=== PATIENT | female | born 1990 | race Caucasian/White ===

== ENCOUNTER 2017-02-02 20:00 | Inpatient (IN) | payer OTHER ==
[~2017-02-02] VITALS: Ht 165.1 cm; Wt 63.0 kg
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
--- NOTE | ~2017-02-02 | HP ---
Unit #: [id number] #: [id number] Patient: MENDY BOYD [id number] [place] [address] [id number] I MR#: [id number] NAME: MENDY BOYD. ROOM: 76 Age: 26 Sex: F Admission Date: 02/02/2017 : 1990 Attending Physician: Poncho Viera M.D. Admitting Physician: Poncho Viera M.D. Primary Care Physician: Primary Care Physician No HISTORY AND PHYSICAL HISTORY OF PRESENT ILLNESS The patient is a 26-year-old female admitted to [facility] on 1988 to detox from heroin. PAST MEDICAL HISTORY 1. Hepatitis C. 2. Hypertension. 3. COPD. 4. Asthma. 5. History of MRSA. PAST SURGICAL HISTORY The patient denies. SOCIAL HISTORY She is unemployed and homeless. Smokes less than 1/2 pack of cigarettes per day. Uses one to one-half grams of heroin per day and a fourth of gram of methamphetamines per day. FAMILY MEDICAL HISTORY Noncontributory. ALLERGIES No known drug allergies. CURRENT MEDICATIONS The patient is not on any home medications. REVIEW OF SYSTEMS CONSTITUTIONAL: No fever or chills. HEENT: Denies any sore throat, ear pain or runny nose. CARDIOVASCULAR: Denies chest pain, irregular heart rhythm or palpitations. CHEST: Denies shortness of breath or cough. No hemoptysis. GASTROINTESTINAL: Denies nausea, vomiting, diarrhea or chronic constipation. ENDOCRINE: Denies history of increased thirst or urination. No recent significant weight loss or gain. GENITOURINARY: Denies dysuria, frequency, or hematuria. SKIN: Denies any rashes. HEMATOLOGIC: Denies history of increased bleeding or bruising. MUSCULOSKELETAL: Denies any hot, swollen joints. No generalized muscle pain. NEUROLOGIC: Denies problems with vision or speech. No frequent, severe Unit #: [id number] #: [id number] Patient: MENDY BOYD headaches. No numbness, tingling or weakness in any extremities. Denies loss of bladder or bowel control. PHYSICAL EXAM GENERAL: She is awake, alert and oriented in no acute distress. VITAL SIGNS: Temperature 98.9, heart rate 99, respiration 20, blood pressure 118/79. HEIGHT: 5'5". WEIGHT: 139 pounds. SKIN: Warm and dry without rash or lesion. HEENT: Normocephalic. TMs not viewed. Oral and nasal passages clear. Conjunctivae clear. PERRLA. EOMs intact. NECK: Supple without lymphadenopathy or thyromegaly. HEART: Regular rate and rhythm without murmur. LUNGS: Clear. ABDOMEN: Soft, nontender. : Not done. EXTREMITIES: No evidence of cyanosis, clubbing or edema. Moves all without focal deficit. NEUROLOGICAL: Grossly within normal limits. Cranial Nerves: II: Visual arroyo are intact. III, IV AND : Extraocular movements are intact. Pupils are equal, round and reactive to light. V: Facial sensation is grossly normal. VII: Facial movements and expression are normal. VIII: Auditory acuity grossly intact. IX, X: Uvula is midline. Phonation is normal. XI: Patient shrugs shoulders and turns head normally. XII: Tongue protrudes in the midline. Sensory and Motor Function: Sensory and motor sensation is grossly normal. Motor: moves all extremities well. IMPRESSION 1. Psychiatric admission. 2. Polysubstance use. 3. Nicotine dependence. 4. Hepatitis C. 5. Hypertension. 6. COPD. 7. Asthma. 8. History of MRSA. RECOMMENDATIONS Psychiatric per psychiatrist. MEDICAL: No contraindication to participate in facility activities. MEDICAL PROGNOSIS Good. MEDICAL CONDITION Stable. Dictated by... Cynthia Gonzales A.P.R.N. Unit #: [id number] #: [id number] Patient: MENDY BOYD DENISE/clint TD: 02/03/2017 23:08 JOB #: [id number] HISTORY AND PHYSICAL Page 1 of 1 X CYNTHIA GONZALES APRN HISTORY AND PHYSICAL
--- NOTE | ~2017-02-02 | DS ---
Unit #: [id number] #: [id number] Patient: MENDY BOYD [id number] [place] [address] [id number] I MR#: [id number] NAME: MENDY BOYD. ROOM: [facility] Age: 26 Sex: F Admission Date: 02/02/2017 : 1990 Discharge Date: 02/04/2017 Attending Physician: Poncho Viera M.D. Primary Care Physician: Primary Care Physician No DISCHARGE SUMMARY REASON FOR ADMISSION Jeana is a 26-year-old woman, who presented complaining of the use of heroin daily with the occasional use of methamphetamine, she had no suicidal ideation, intent, or plan stating that she needed to be admitted for detox. DIAGNOSTIC STUDIES Laboratory data, please see hospital chart. Beta HCG was negative. HOSPITAL COURSE The patient was admitted and placed on the opiate detox protocol. The patient has expressed some dissatisfaction with the hospital inpatient milieu, but agreed to continue on the initial stages of this, when she was seen the following day she complained of difficulty sleeping and trazodone was provided. However, later that afternoon the patient went to the nurses' station and requested discharge AGAINST MEDICAL ADVICE, apparently feeling that our program was not meeting her needs. She was seen by warehouse supervisor and her professor of social work who agreed that she was able to give a reliable contract for safety, and the patient was discharged AMA at her request to followup in the community. DISCHARGE DIAGNOSES Paradox I Opiate dependence, withdrawal, uncomplicated. Paradox II No diagnosis. Paradox III Asthma. COPD. History of hypertension. History of hepatitis C. Paradox IV Paradox V INSTRUCTIONS TO PATIENT Follow up with CD programming of your choice. DISCHARGE MEDICATIONS None. CONDITION AT DISCHARGE Fair. PROGNOSIS Fair. Unit #: [id number] #: [id number] Patient: MENDY BOYD DIET AND ACTIVITY Ad sai. Dictated by... Teena FaustH/augusto TD: 02/08/2017 08:13 JOB #: [id number] DISCHARGE SUMMARY Page 1 of 1 X Poncho Viera MD X DISCHARGE SUMMARY
[2017-02-04 09:48] LABS: BASOPHIL% 0.5 % (0-2.5); EOSINOPHIL# 0.3 X10e3 (0-0.7); EOSINOPHIL% 3.5 % (0.0-7.0); HEMATOCRIT 39.1 % (35.0-45.0); HEMOGLOBIN 13.1 gm/dL (12.0-16.0); LYMPHOCYTE# 2.8 X10e3 (1.0-3.5); LYMPHOCYTE% 30.6 % (17.0-45.0); MEAN CELL VOLUME 81.3 FL (83-96); MEAN CORPUSCULAR HEMOGLOBIN 27.3 PG (28-34); MEAN CORPUSCULAR HGB CONC 33.6 g/dL (30-36); MEAN PLATELET VOLUME 7.9 FL (6.5-11.5); MONOCYTE# 0.8 X10e3 (0-1.0); MONOCYTE% 8.7 % (3.0-12.0); NEUTROPHIL# 5.1 X10e3 (1.5-7.1); NEUTROPHIL% 56.7 % (40-75); PLATELET COUNT 311 X10e3 (140-420); RED BLOOD COUNT 4.81 X10e (3.90-5.30); RED CELL DISTRIBUTION WIDTH 14.2 % (11.0-15.5)
[2017-02-04 10:08] LABS: DIFF IND NO
[2017-02-04 11:10] LABS: ALBUMIN SERUM 3.4 g/dL (3.5-5.0); BILIRUBIN,TOTAL 0.3 mg/dL (0.2-2.0); BUN/CREATININE RATIO 18.33; CALCIUM SERUM 9.2 mg/dL (8.4-10.2); CREATININE SERUM 0.6 mg/dL (0.6-1.4); POTASSIUM 4.6 mmol/L (3.5-5.1); PROTEIN TOTAL SERUM 7.3 g/dL (6.0-8.3)
== END 2017-02-04 18:35 | disposition left against medical advice (07) | DRG 894 ==
LOC: P1E 22:27
PROVIDERS: Psychiatry & Neurology Psychiatry
DX: F11.23 Opioid dependence with withdrawal (principal); I10 Essential (primary) hypertension; J44.9 Chronic obstructive pulmonary disease, unspecified; J45.909 Unspecified asthma, uncomplicated; F17.210 Nicotine dependence, cigarettes, uncomplicated
CPT/HCPCS: 80053; 84703; 85025; 86592